=== PATIENT | female | born 1975 | race Caucasian/White ===

== ENCOUNTER 2020-01-11 15:28 | Inpatient (IN) ==
[2020-01-11] MEDS ORDERED: ALBUTEROL SULFATE 60 PUFF INHALER IH ONE (15:41)
[2020-01-11] MEDS ORDERED: ACETAMINOPHEN 500 MG TABLET PO ONE (15:42)
--- NOTE | 2020-01-11 15:51 | ERNOTE ---
Medical Problem HPI - Narrative Date of Service: 01/11/20 - General Chief Complaint: General Assessment Time Seen by Provider: 01/11/20 15:29 Source: patient Exam Limitations: no limitations - Immun/Allergies/Home Medications Immunizations: IMMUNIZATION HX Immunizations Up to Date Yes History of Influenza Vaccine No Allergies/Adverse Reactions: Allergies No Known Allergies Allergy (Unverified 01/11/20 15:37) Home Medications: HOME MEDICATIONS NK 01/11/20 [Last Taken Unknown] - Pain Score Pain Score #1 Pain Score: 6 - History of Present History Narrative: The patient is a 44 year old female who presents for dyspnea, fever and headache which has been present for 3-4 days. There are associated symptoms of fatigue and cough. The patient reports frontal and occipital pain, 6/10. There are no alleviating factors. There are no aggravating factors. Previous treatments have included: Tylenol with minimal improvement. The past medical history includes: noncontributory. The social history is positive for current tobacco use. The patient has had ill contacts at home with her spouse testing positive for COVID-19, 5 days ago. Patient states she developed headache and fever 4 days ago which progressed to cough and dyspnea. Patient reports remains eating and drinking with urine output but overall has been decreased due to fatigue. Review of Systems - Review of Systems Constitutional: Present: fever, chills, fatigue EYE: Present: no symptoms reported ENT: Present: no symptoms reported. Absent: ear pain, nose congestion, nasal drainage, sore throat Respiratory: Present: shortness of breath, cough Cardiology: Present: no symptoms reported. Absent: chest pain Gastrointestinal/Abdominal: Present: nausea, eating less, drinking less. Absent: vomiting, diarrhea Genitourinary: Present: no symptoms reported. Absent: decreased urinary output Musculoskeletal: Present: no symptoms reported Skin: Present: no symptoms reported. Absent: rash Neurological: Present: headache, weakness All Other Systems: All systems neg except as marked Medical History (Last Reviewed 01/11/20 @ 15:46 by EVER Byrd) No pertinent past medical history Surgical History: Surgical History (Last Reviewed 01/11/20 @ 15:46 by EVER Byrd) No pertinent past surgical history Social History: (Last Reviewed 01/11/20 @ 15:46 by Jacquelyn Antwon, EDUCATION LIAISON) Tobacco: Smoking Status: Current every day smoker Smoking packs per day: 0.5 Alcohol: alcohol intake frequency: holiday/special occasion Physical Exam - Physical Exam General Appearance: Present: wd/wn, alert, lethargic - awakens easily with verbal stimuli, sleeping/easy to arouse, other - malaised Head Exam: Present: normal inspection Eye Exam: Normal inspection: bilateral, PERRL: bilateral, EOMI: bilateral Ears, Nose, Throat: Present: normal except -, normal pharynx, dry mucous membranes. Absent: abnormal TM (R), abnormal TM (L), nasal congestion, sinus pain/drainage Neck: Present: normal inspection, nontender, full range of motion Respiratory: Present: no respiratory distress, accessory muscle use - mild, decreased breath sounds - left base greatest, rhonchi - right base and mid, expiratory Cardiovascular/Chest: Present: no murmur, tachycardia Gastrointestinal/Abdominal: Present: normal bowel sounds, nontender, nondistended, soft, no organomegaly Extremity Exam: Present: no edema Neurological Exam: Present: alert, oriented, normal mood/affect, no motor/sensory deficits Skin Exam: Present: normal color, warm/dry, other - presumed track liu noted to AC from possible drug use Progress - Date and Time Seen: Date and Time: 01/11/20 17:29 Will administer Zosyn due to elevated WBC 16.2 and Procalcitonin 42. Patient remains normotensive following IV fluid bolus with HR 112, will continue IV hydration at rate of 126ml/hr. Patient resting with minimal distress noted, mild accessory muscle use. Patient remains 97% on RA with resp rate 22. 01/11/20 17:36 Lab staff having difficulty to obtain specimen for ordered testing. 01/11/20 17:58 RT unable to obtain ABG due to patient movement, patient refuses second attempt. Awaiting portable CXR. 01/11/20 19:13 Repeat fluid bolus due to elevation to lactic acid. Added Vanco for MRSA coverage due to track liu and drug screen positive for amphetamines along with CXR findings. Patient for CTA due to symptoms and elevated ddimer. 01/11/20 20:00 Case discussed with , will admit acute for sepsis, possible COVID and multifocal pneumonia. Results of testing as well pending testing reviewed with , requests 3rd liter bolus as well as to continue IV fluids at 126m/hr. - Results and Orders Patient's Lab Results:: I have reviewed the patient's lab results. - Vital Signs Patient's Vital Signs:: I have reviewed the patient's vital signs. Vital Signs: Vital Signs 01/11/20 15:29 Temperature 37.9 C Pulse Rate 98 Respiratory Rate 25 H Blood Pressure 133/81 O2 Sat by Pulse Oximetry 97 - EKG EKG #1 EKG: NSR - tachycardia rate 112, nonspecific ST T wave changes - ST depression II, III, aVF - X-Ray X-Ray #1 X-Ray: chest Interpretation: Reviewed by me X-ray Comments: bilateral multifocal pneumonia, reviewed with . - CT/Ultrasound CT/Ultrasound Narrative: IMPRESSION: 1. No PE 2. Findings compatible with multifocal pneumonia and probable reactive hilar adenopathy and mediastinal adenopathy Electronically signed by Amol Oglesby M.D.. - Progress/Reassessment Chief Complaint: General Assessment Departure Clinical Impression: Multifocal pneumonia, Suspected COVID-19 virus infection Sepsis Qualifiers: Sepsis type: sepsis due to unspecified organism Sepsis acute organ dysfunction status: without acute organ dysfunction Qualified Code(s): A41.9 - Sepsis, unspecified organism - Departure Disposition: Still a patient Condition: Fair
[2020-01-11 16:06] LABS: Hematocrit 37.4 % (37.0-47.0); Hemoglobin 12.7 gm/dL (12.5-16.0); Mean Cell Volume 92.3 fl (78-100); Mean Corpuscular Hemoglobin 31.4 pg (27-31); Mean Platelet Volume 11.9 fl (8-12.5); Platelet Count 177 K/mm3 (150-450); Red Blood Count 4.05 M/mm3 (4.2-5.4); Red Cell Distribution Width 12.8 % (11.5-14.0); White Blood Count 16.2 K/mm3 (4.0-10.5)
[2020-01-11] MEDS: NORMAL SALINE 1,000 ML IV PRN ×2 (16:11→22:45)
[2020-01-11 16:15] LABS: Total Cells Counted 100
[2020-01-11 16:20] LABS: ALT 12 U/L (19-67); AST 14 U/L (0-48); Albumin * 2.6 gm/dl (3.4-5.0); Alkaline Phosphatase * 122 U/L (50-170); Anion Gap 13.3 mmol/L (6.8-13.8); BUN/Creatinine Ratio 4.9 (9.0-21.6); Bilirubin, Total 0.6 mg/dL (0.0-1.1); Blood Urea Nitrogen 5 mg/dL (3-23); Ca. Corrected For Albumin 9.5 mg/dL (8.4-10.2); Calcium * 8.7 mg/dL (7.9-10.9); Carbon Dioxide 27.1 mmol/L (24-32.6); Chloride 95 mmol/L (97-106); Glucose * 103 mg/dL (70-110); Potassium 3.4 mmol/L (3.4-4.6); Sodium 132 mmol/L (132-142); Total Protein 7.2 gm/dL (6.2-8.2); Troponin I Less than 0.017 ng/mL (0.00-0.10)
[2020-01-11 16:30] LABS: Band 21 % (0-2.0); Lymphocyte 6 % (20-51); Monocyte 3 % (0-9); Neutrophil 70 % (42-75); Neutrophil # 11.3 K/mm3 (1.3-6.0)
[2020-01-11 16:33] LABS: Anisocytosis Trace; Platelet Estimate Normal (NORMAL)
[2020-01-11] MEDS ORDERED: PIPERACILLIN SODIUM/TAZOBACTAM 3.375 GM in DEXTROSE 5 % IN WATER 100 ML IV ONE ×2 (17:03)
[2020-01-11] MEDS ORDERED: NORMAL SALINE 1,000 ML IV ONE ×2 (17:19→20:08)
[2020-01-11 18:17] LABS: Urine Bilirubin Negative (NEGATIVE); Urine Blood Negative /ul (NEGATIVE); Urine Ketone Negative (NEGATIVE); Urine Nitrite Negative (NEGATIVE); Urine Protein Negative (NEGATIVE); Urine Urobilinogen Normal (NORMAL); Urine pH 6.5 pH (5.0-7.0)
[2020-01-11] MEDS ORDERED: VANCOMYCIN/WATER FOR INJ (PEG) 1 GM/200 ML BAG IV ONE (18:41)
[2020-01-11] MEDS ORDERED: NORMAL SALINE 1,000 ML IV PRN (18:58)
[2020-01-11 18:59] LABS: Urine Appearance Cloudy (CLEAR); Urine Bacteria TRACE; Urine Color Yellow; Urine RBC TRACE /hpf (0-5); Urine WBC TRACE /hpf (0-5)
[2020-01-11 19:02] LABS: Cocaine Ur Negative (NEGATIVE); Urine Barbiturate Negative (NEGATIVE); Urine Benzodiazepines Negative (NEGATIVE); Urine Opiates Negative (NEGATIVE); Urine PCP Negative (NEGATIVE); Urine THC Negative (NEGATIVE)
[2020-01-11] MEDS ORDERED: ALBUTEROL SULFATE 200 PUFF INHALER IH PRN (20:29)
[2020-01-11] MEDS ORDERED: AZITHROMYCIN 500 MG in DEXTROSE 5 % IN WATER 250 ML IV ONE ×2 (21:00)
[2020-01-11] MEDS: SACCHAROMYCES BOULARDII 250 MG CAPSULE PO SCH (22:43)
[2020-01-11] MEDS: ENOXAPARIN SODIUM 40 MG/0.4 ML SYRG SC SCH (22:43)
[2020-01-11] MEDS: PANTOPRAZOLE SODIUM 40 MG TABLET.EC PO SCH (22:43)
[2020-01-11] MEDS: NICOTINE 14 MG PATC TD SCH (22:44)
[2020-01-12] MEDS: PIPERACILLIN SODIUM/TAZOBACTAM 3.375 GM in DEXTROSE 5 % IN WATER 100 ML IV SCH ×6 (01:15→16:21)
[2020-01-12] MEDS: ACETAMINOPHEN 325 MG TABLET PO PRN ×3 (02:49→20:31)
[2020-01-12] MEDS: NORMAL SALINE 1,000 ML IV PRN ×2 (08:01→16:15)
[2020-01-12] MEDS: PANTOPRAZOLE SODIUM 40 MG TABLET.EC PO SCH ×2 (08:03→20:32)
[2020-01-12] MEDS: VANCOMYCIN/WATER FOR INJ (PEG) 1 GM/200 ML BAG IV SCH ×2 (08:03→20:30)
[2020-01-12] MEDS: SACCHAROMYCES BOULARDII 250 MG CAPSULE PO SCH ×2 (08:08→20:31)
[2020-01-12] MEDS ORDERED: guaiFENesin 100 MG/5 ML SYRUP PO PRN (08:19)
--- NOTE | 2020-01-12 08:40 | HP ---
Chief Complaint - Chief Complaint Date of Service: 01/12/20 Time of Service: 08:21 Chief Complaint: I have cough, fever, chills, and shortness of breath for 4 days History of Present Illness: 44-year-old female with no significant past medical history was evaluated in the ER for shortness of breath, fever, chills and cough for more than 4 days. Patient currently lives with her who tested positive for COVID-19 5 days ago and has been ill with the same symptoms that she presents today. She reports that her symptoms started with a cough but by the second day she was having trouble breathing and developed a fever with chills. Since then she has had poor appetite and poor oral intake and is likely dehydrated. Patient was brought to the ER when she became lethargic and developed generalized weakness. Labs on admission demonstrate significant leukocytosis with left shift and elevated lactic acid. She was immediately started on IV fluids for aggressive hydration and IV antibiotics. Patient was also swabbed for COVID-19 especially given her exposure from her . While we wait for result we will keep her in a negative pressure room and take all necessary precaution to prevent propagation of the virus. Of note the patient was observed to have track liu in her inner forearms and although she denies injecting drugs she tested positive for amphetamines, will have to watch her closely for withdrawal. She was also administered has given her long history of smoking half a pack of cigarettes a day. Patient denies drinking alcohol. Medical History (Last Reviewed 01/11/20 @ 15:46 by EVER Byrd) No pertinent past medical history Surgical History: Surgical History (Last Reviewed 01/11/20 @ 15:46 by EVER Byrd) No pertinent past surgical history Social History: (Last Reviewed 01/11/20 @ 15:46 by EVER Byrd) Tobacco: Smoking Status: Current every day smoker Smoking packs per day: 0.5 Alcohol: alcohol intake frequency: holiday/special occasion Peds Patient Hx - Developmental: No Pertinent Hx Peds Patient Hx - Medical: No Pertinent Hx Peds Patient Hx - Cardiac/Respiratory: No Pertinent Hx Peds Patient Hx - Surgical: No Surgical History Patient History - Cancer: No Hx of Cancer Review Of Systems (GEN) - Review of Systems Generalized/Overall Review: Present: Weakness, Chills, Fever, Malaise, Fatigue EENTM: Present: No Symptoms Reported Respiratory: Present: Cough, Shortness of Breath Cardiac: Present: No Symptoms Reported Abdominal: Present: Other - Poor appetite and poor oral intake Genitourinary: Present: No Symptoms Reported Musculoskeletal: Present: No Symptoms Reported Neurological: Present: No Symptoms Reported Skin: Present: No Symptoms Reported Endocrine: Present: No Symptoms Reported Immunizations: IMMUNIZATION HX Immunizations Up to Date Yes History of Influenza Vaccine No Allergies/Adverse Reactions: Allergies Allergy/AdvReac Type Severity Reaction Status Date / Time No Known Allergies Allergy Unverified 01/11/20 21:07 Home Medications: HOME MEDICATIONS NK 01/11/20 [Last Taken Unknown] Exam - Exam Vital Signs: Vital Signs - Last Taken Temp 36.9 C 01/12/20 06:00 Pulse 106 H 01/12/20 08:14 Resp 18 01/12/20 06:00 BP 107/73 01/12/20 08:14 Pulse Ox 97 01/12/20 08:14 Constitutional: Present: Alert, Oriented x3, Cooperative, No distress, Lethargic, Somnolent ENT Exam: Present: normal ENT inspection, hearing grossly normal, pharynx normal, TMs normal Eye Exam: bilateral eye: normal inspection, PERRL, EOMI Neck: Present: non-tender, full range of motion, supple, normal inspection, trachea midline Back Exam: Present: normal inspection, no CVA tenderness, no vertebral tenderness Breasts: Present: Exam deferred, Nontender Respiratory: Present: decreased breath sounds Cardiovascular/Chest: Present: normal peripheral pulses, regular rate, rhythm, no chest tenderness, no edema, no gallop, no JVD, no murmur, no rub Peripheral Pulses: carotid (R): 3+, carotid (L): 3+, femoral (R): 3+, femoral (L): 3+, dorsalis-pedis (R): 2+, dorsalis-pedis (L): 2+ Abdomen: Present: soft, nontender, nondistended, no rebound tenderness, no hepatospenomegaly, no masses, hypoactive /Rectal: Present: Exam deferred Extremity: Present: normal range of motion, non-tender, normal inspection, no pedal edema, no calf tenderness, normal capillary refill, pelvis stable Skin Exam: Present: normal color, warm/dry, no cyanosis Lymphatic: Present: no adenopathy Neurologic: Present: alert, oriented x 3, depressed affect Appearance: Present: appropriate appearance, appropriate insight, neat, no memory impairment Eye contact: Present: cooperative, good eye contact, decreased rate of speech Thoughts: Present: normal thought pattern, no apparent hallucination Diagnostic Studies: Abnormal Lab Results 01/11/20 01/11/20 01/11/20 Range/Units 16:01 16:01 16:01 WBC 16.2 H (4.0-10.5) K/mm3 RBC 4.05 L (4.2-5.4) M/mm3 MCH 31.4 H (27-31) pg Band Neuts % (Manual) 21 H (0-2.0) % Lymphocytes % (Manual) 6 L (20-51) % Neutrophils # (Manual) 11.3 H (1.3-6.0) K/mm3 Lymphocytes # (Manual) 1.0 L (1.5-3.5) k/mm3 D-Dimer (0.19-0.49) ug/mL Chloride 95 L (97-106) mmol/L BUN/Creatinine Ratio 4.9 L (9.0-21.6) Lactic Acid, Venous (0.4-2.0) mmol/L ALT 12 L (19-67) U/L Albumin 2.6 L (3.4-5.0) gm/dl Procalcitonin 42.96 H (0.05-0.50) ng/mL Urine WBC (0-5) /hpf Urine Amphetamine (NEGATIVE) 01/11/20 01/11/20 01/11/20 Range/Units 16:01 17:33 18:25 WBC (4.0-10.5) K/mm3 RBC (4.2-5.4) M/mm3 MCH (27-31) pg Band Neuts % (Manual) (0-2.0) % Lymphocytes % (Manual) (20-51) % Neutrophils # (Manual) (1.3-6.0) K/mm3 Lymphocytes # (Manual) (1.5-3.5) k/mm3 D-Dimer (0.19-0.49) ug/mL Chloride (97-106) mmol/L BUN/Creatinine Ratio (9.0-21.6) Lactic Acid, Venous 2.6 H* (0.4-2.0) mmol/L ALT (19-67) U/L Albumin (3.4-5.0) gm/dl Procalcitonin (0.05-0.50) ng/mL Urine WBC Trace H (0-5) /hpf Urine Amphetamine Positive H (NEGATIVE) 01/11/20 01/11/20 Range/Units 18:30 18:30 WBC (4.0-10.5) K/mm3 RBC (4.2-5.4) M/mm3 MCH (27-31) pg Band Neuts % (Manual) (0-2.0) % Lymphocytes % (Manual) (20-51) % Neutrophils # (Manual) (1.3-6.0) K/mm3 Lymphocytes # (Manual) (1.5-3.5) k/mm3 D-Dimer 1.26 H (0.19-0.49) ug/mL Chloride (97-106) mmol/L BUN/Creatinine Ratio (9.0-21.6) Lactic Acid, Venous 3.6 H* (0.4-2.0) mmol/L ALT (19-67) U/L Albumin (3.4-5.0) gm/dl Procalcitonin (0.05-0.50) ng/mL Urine WBC (0-5) /hpf Urine Amphetamine (NEGATIVE) Laboratory Results WBC 16.2 K/mm3 (4.0-10.5) H 01/11/20 16:01 RBC 4.05 M/mm3 (4.2-5.4) L 01/11/20 16:01 Hgb 12.7 gm/dL (12.5-16.0) 01/11/20 16:01 Hct 37.4 % (37.0-47.0) 01/11/20 16:01 MCV 92.3 fl (78-100) 01/11/20 16:01 MCH 31.4 pg (27-31) H 01/11/20 16:01 MCHC 34.0 g/dl (32-36) 01/11/20 16:01 RDW 12.8 % (11.5-14.0) 01/11/20 16: Plt Count 177 K/mm3 (150-450) 01/11/20 16:01 MPV 11.9 fl (8-12.5) 01/11/20 16:01 Neutrophils % (Manual) 70 % (42-75) 01/11/20 16:01 Band Neuts % (Manual) 21 % (0-2.0) H 01/11/20 16:01 Lymphocytes % (Manual) 6 % (20-51) L 01/11/20 16:01 Monocytes % (Manual) 3 % (0-9) 01/11/20 16:01 Neutrophils # (Manual) 11.3 K/mm3 (1.3-6.0) H 01/11/20 16:01 Lymphocytes # (Manual) 1.0 k/mm3 (1.5-3.5) L 01/11/20 16:01 Monocytes # (Manual) 0.5 k/mm3 (0.0-1.0) 01/11/20 16:01 Platelet Estimate Normal (NORMAL) 01/11/20 16: Anisocytosis Trace 01/11/20 16:01 D-Dimer 1.26 ug/mL (0.19-0.49) H 01/11/20 18:30 Sodium 132 mmol/L (132-142) 01/11/20 16:01 Plasma Sodium 132 mmol/L (130-142) 01/11/20 16:01 Potassium 3.4 mmol/L (3.4-4.6) 01/11/20 16:01 Chloride 95 mmol/L (97-106) L 01/11/20 16:01 Carbon Dioxide 27.1 mmol/L (24-32.6) 01/11/20 16:01 Anion Gap 13.3 mmol/L (6.8-13.8) 01/11/20 16:01 BUN 5 mg/dL (3-23) 01/11/20 16:01 Creatinine 1.02 mg/dL (0.4-1.4) 01/11/20 16:01 Est GFR (Non-Af Amer) 63 mL/min (60-130) 01/11/20 16:01 BUN/Creatinine Ratio 4.9 (9.0-21.6) L 01/11/20 16:01 Random Glucose 103 mg/dL (70-110) 01/11/20 16:01 Lactic Acid, Venous 3.6 mmol/L (0.4-2.0) H* 01/11/20 18:30 Calcium 8.7 mg/dL (7.9-10.9) 01/11/20 16: Calcium Adj for Albumin 9.5 mg/dL (8.4-10.2) 01/11/20 16: Total Bilirubin 0.6 mg/dL (0.0-1.1) 01/11/20 16:01 AST 14 U/L (0-48) 01/11/20 16:01 ALT 12 U/L (19-67) L 01/11/20 16:01 Alkaline Phosphatase 122 U/L (50-170) 01/11/20 16: Troponin I Less than 0.017 ng/mL (0.00-0.10) 01/11/20 16: Total Protein 7.2 gm/dL (6.2-8.2) 01/11/20 16: Albumin 2.6 gm/dl (3.4-5.0) L 01/11/20 16: Procalcitonin 42.96 ng/mL (0.05-0.50) H 01/11/20 16:01 Urine Color Yellow 01/11/20 18:25 Urine Appearance Cloudy (CLEAR) 01/11/20 18:25 Urine pH 6.5 pH (5.0-7.0) 01/11/20 18:25 Ur Specific [place] 1.010 SP.GR. (1.005-1.010) 01/11/20 18:25 Urine Protein Negative mg/dL (NEGATIVE) 01/11/20 18:25 Urine Glucose (UA) Negative mg/dL (NEGATIVE) 01/11/20 18:25 Urine Ketones Negative mg/dL (NEGATIVE) 01/11/20 18:25 Urine Blood Negative /ul (NEGATIVE) 01/11/20 18:25 Urine Nitrate Negative (NEGATIVE) 01/11/20 18:25 Urine Bilirubin Negative mg/dl (NEGATIVE) 01/11/20 18:25 Urine Urobilinogen Normal EU/dl (NORMAL) 01/11/20 18:25 Ur Leukocyte Esterase Negative /ul (NEGATIVE) 01/11/20 18:25 Urine RBC Trace /hpf (0-5) 01/11/20 18:25 Urine WBC Trace /hpf (0-5) H 01/11/20 18:25 Ur Epithelial Cells 0-5 /hpf (0-5) 01/11/20 18:25 Urine Bacteria Trace (NONE) 01/11/20 18:25 Urine Culture Comments No culture indicated 01/11/20 18:25 Urine Opiates Screen Negative (NEGATIVE) 01/11/20 17:33 Barbiturate Screen Negative (NEGATIVE) 01/11/20 17:33 Ur Phencyclidine Scrn Negative (NEGATIVE) 01/11/20 17:33 Urine Amphetamine Positive (NEGATIVE) H 01/11/20 17:33 U Benzodiazepines Scrn Negative (NEGATIVE) 01/11/20 17:33 Urine Cocaine Screen Negative (NEGATIVE) 01/11/20 17:33 Urine Marijuana (THC) Negative (NEGATIVE) 01/11/20 17:33 Assessment/Plan - Narrative Narrative: Patient was evaluated medical chart was reviewed and decision to admit for a diagnosis of multifocal pneumonia and suspected COVID-19 infection was made. She underwent a chest x-ray which demonstrated bilateral infiltrate making a multifocal pneumonia very likely. The patient had an elevated d-dimer upon arriving to the ER and underwent a CTA of her lungs which was negative for PE, however the imaging did confirm bilateral multifocal pneumonia. Therefore we will continue to hydrate her aggressively and treat her with appropriate IV antibiotics. We will also follow her with daily labs in order to evaluate her leukocytosis and response to therapies. We will also follow-up with COVID-19 results but keep the patient and the negative pressure room until the results return. - Assessment/Plan (1) Multifocal pneumonia Problem: Acute (2) Suspected COVID-19 virus infection Problem: Acute (3) Sepsis Problem: Acute (4) Nicotine dependence Problem: Chronic Qualifiers: Nicotine product type: cigarettes (5) Amphetamine addiction Problem: Acute (6) Dehydration Problem: Acute
[2020-01-12] MEDS: NICOTINE 14 MG PATC TD SCH ×2 (13:55→21:06)
[2020-01-12] MEDS ORDERED: VANCOMYCIN/WATER FOR INJ (PEG) 1 GM/200 ML BAG IV SCH (18:40)
[2020-01-12] MEDS: AZITHROMYCIN 250 MG TABLET PO SCH (20:31)
[2020-01-12] MEDS: ENOXAPARIN SODIUM 40 MG/0.4 ML SYRG SC SCH (20:32)
[2020-01-12] MEDS ORDERED: AZITHROMYCIN 250 MG in DEXTROSE 5 % IN WATER 250 ML IV SCH ×2 (21:00)
[2020-01-12 21:59] LABS: Hematocrit 27.5 % (37.0-47.0); Hemoglobin 9.4 gm/dL (12.5-16.0); Mean Cell Volume 92.9 fl (78-100); Mean Corpuscular Hemoglobin 31.8 pg (27-31); Mean Corpuscular Hgb Conc 34.2 g/dl (32-36); Mean Platelet Volume 11.7 fl (8-12.5); Platelet Count 146 K/mm3 (150-450); Red Blood Count 2.96 M/mm3 (4.2-5.4); Red Cell Distribution Width 13.2 % (11.5-14.0); White Blood Count 10.8 K/mm3 (4.0-10.5)
[2020-01-12 22:07] LABS: Total Cells Counted 100
[2020-01-12 22:09] LABS: Albumin * 1.7 gm/dl (3.4-5.0); Anion Gap 12.7 mmol/L (6.8-13.8); BUN/Creatinine Ratio 7.4 (9.0-21.6); Bilirubin, Total 0.5 mg/dL (0.0-1.1); Calcium * 7.5 mg/dL (7.9-10.9); Carbon Dioxide 21.8 mmol/L (24-32.6); Total Protein 5.6 gm/dL (6.2-8.2)
[2020-01-12 22:15] LABS: Potassium 2.5 mmol/L (3.4-4.6)
[2020-01-12 22:21] LABS: Lymphocyte 11 % (20-51); Monocyte 6 % (0-9); Neutrophil 83 % (42-75); Platelet Estimate Normal (NORMAL); RBC Morphology Normal (NORMAL)
[2020-01-12] MEDS ORDERED: POTASSIUM CHLORIDE 20 MEQ TABLET.SA PO ONE (22:55)
[2020-01-13] MEDS ORDERED: POTASSIUM CHLORIDE 20 MEQ TABLET.SA ONE (00:22)
[2020-01-13] MEDS: NORMAL SALINE 1,000 ML IV PRN ×3 (00:33→17:38)
[2020-01-13] MEDS: PIPERACILLIN SODIUM/TAZOBACTAM 3.375 GM in DEXTROSE 5 % IN WATER 100 ML IV SCH ×6 (00:34→16:15)
[2020-01-13] MEDS: ACETAMINOPHEN 325 MG TABLET PO PRN ×3 (00:36→20:17)
[2020-01-13] MEDS: PANTOPRAZOLE SODIUM 40 MG TABLET.EC PO SCH ×2 (07:01→20:17)
[2020-01-13] MEDS: VANCOMYCIN/WATER FOR INJ (PEG) 1 GM/200 ML BAG IV SCH ×2 (07:02→20:16)
--- NOTE | 2020-01-13 08:46 | PN ---
Subjective - Date and Time Seen Date: 01/13/20 Time: 08:38 Subjective Narrative: I had high fever last night and I still have cough. Objective Objective Narrative: 44-year-old female admitted for sepsis due to COVID-19 pneumonia and dehydration was evaluated at bedside while still in the negative pressure room and was found to be afebrile and in no acute distress, however the patient still appears acutely ill with skin flushing and weakness. Test results for COVID-19 returned positive last night, so we will continue current treatment and keep her in a negative pressure room. Patient reports that her breathing has improved since arriving to the hospital however she still feels weak and still has a cough that keeps her up, she also reports a high-grade fever last night that caused her to have a difficult time. Patient was treated with acetaminophen and the fever subsided. Since then she has had no recurrence of fever but we will continue to monitor her closely. At the moment she maintains adequate oxygen saturation on room air and stable vitals and labs this morning demonstrate a favorable response to triple antibiotics including azithromycin to cover for her COVID 19, however she had significant hypokalemia. IV potassium replacement and follow-up labs for tomorrow morning were ordered. In the meantime we will keep the patient hydrated with IV normal saline and other symptomatic medications to make as comfortable as possible. - Review of Systems Generalized/Overall Review: Reports: Weakness, Fever EENTM: Reports: No Symptoms Reported Respiratory: Reports: Cough Cardiac: Reports: No Symptoms Reported Abdominal: Reports: No Symptoms Reported Genitourinary Symptoms: Reports: No Symptoms Reported Musculoskeletal Complaints: Reports: No Symptoms Reported Neurological: Reports: No Symptoms Reported Skin: Reports: No Symptoms Reported Endocrine: Reports: No Symptoms Reported - Vitals Vitals: Last Vital Signs Temp 37.3 C 01/13/20 07:08 Pulse 101 H 01/13/20 07:08 Resp 20 01/13/20 07:08 BP 113/58 01/13/20 07:08 Pulse Ox 100 01/13/20 07:08 - Abnormal Lab Findings Abnormal Lab Findings: Abnormal Lab Results 01/12/20 01/12/20 01/12/20 Range/Units 21:46 21:46 21:46 WBC 10.8 H D (4.0-10.5) K/mm3 RBC 2.96 L (4.2-5.4) M/mm3 Hgb 9.4 L (12.5-16.0) gm/dL Hct 27.5 L (37.0-47.0) % MCH 31.8 H (27-31) pg Plt Count 146 L (150-450) K/mm3 Neutrophils % (Manual) 83 H (42-75) % Lymphocytes % (Manual) 11 L (20-51) % Neutrophils # (Manual) 9.0 H (1.3-6.0) K/mm3 Lymphocytes # (Manual) 1.2 L (1.5-3.5) k/mm3 VBG pH (7.32-7.43) Potassium 2.5 L D (3.4-4.6) mmol/L Carbon Dioxide 21.8 L (24-32.6) mmol/L BUN/Creatinine Ratio 7.4 L (9.0-21.6) Random Glucose 123 H (70-110) mg/dL Calcium 7.5 L (7.9-10.9) mg/dL ALT 12 L (19-67) U/L Total Protein 5.6 L (6.2-8.2) gm/dL Albumin 1.7 L (3.4-5.0) gm/dl Procalcitonin 19.57 H (0.05-0.50) ng/mL 01/12/20 Range/Units 21:46 WBC (4.0-10.5) K/mm3 RBC (4.2-5.4) M/mm3 Hgb (12.5-16.0) gm/dL Hct (37.0-47.0) % MCH (27-31) pg Plt Count (150-450) K/mm3 Neutrophils % (Manual) (42-75) % Lymphocytes % (Manual) (20-51) % Neutrophils # (Manual) (1.3-6.0) K/mm3 Lymphocytes # (Manual) (1.5-3.5) k/mm3 VBG pH 7.495 H (7.32-7.43) Potassium (3.4-4.6) mmol/L Carbon Dioxide (24-32.6) mmol/L BUN/Creatinine Ratio (9.0-21.6) Random Glucose (70-110) mg/dL Calcium (7.9-10.9) mg/dL ALT (19-67) U/L Total Protein (6.2-8.2) gm/dL Albumin (3.4-5.0) gm/dl Procalcitonin (0.05-0.50) ng/mL - Exam Constitutional: Present: Alert, Oriented x3, Cooperative, Well developed, Well nourished, No distress, Other - Patient appears acutely ill but is not in distress ENT Exam: Present: normal ENT inspection, hearing grossly normal Neck: Present: non-tender, full range of motion, supple, normal inspection, trachea midline Breasts: Present: Exam deferred Respiratory: Present: crackles - Scattered crackles bilaterally Cardiovascular/Chest: Present: normal peripheral pulses, regular rate, rhythm, no chest tenderness, no edema, no gallop, no JVD, no murmur, no rub Abdomen: Present: Normal bowel sounds, soft, nontender, nondistended, no rebound tenderness, no hepatospenomegaly, no masses /Rectal: Present: Exam deferred Extremity: Present: normal range of motion, non-tender, normal inspection, no pedal edema, no calf tenderness, normal capillary refill, pelvis stable Skin Exam: Present: warm/dry, no cyanosis, other - Patient skin is flushed worse in her face and upper thorax Lymphatic: Present: no adenopathy Neurologic: Present: transportation attendant II-XII nml as tested, no motor/sensory deficits, alert, oriented x 3, depressed affect Appearance: Present: appropriate appearance, appropriate insight, neat, no memory impairment Eye contact: Present: cooperative, good eye contact, normal speech Thoughts: Present: normal thought pattern, no apparent hallucination Assessment/Plan Plan Narrative: We will keep patient on IV hydration and on the current antibiotic therapies, will also follow-up with labs in the morning to recheck electrolyte specifically hypokalemia and WBCs. - Problems/Diagnosis (1) Multifocal pneumonia Problem: Acute (2) Suspected COVID-19 virus infection Problem: Acute (3) Sepsis Problem: Acute (4) Nicotine dependence Problem: Chronic Qualifiers: Nicotine product type: cigarettes (5) Amphetamine addiction Problem: Acute (6) Dehydration Problem: Resolved (7) COVID-19 virus infection Problem: Acute
[2020-01-13] MEDS: SACCHAROMYCES BOULARDII 250 MG CAPSULE PO SCH ×2 (08:47→20:17)
[2020-01-13] MEDS: POTASSIUM CHLORIDE IN WATER 100 ML IV SCH ×4 (08:48→11:47)
[2020-01-13] MEDS: AZITHROMYCIN 250 MG TABLET PO SCH (20:17)
[2020-01-13] MEDS: ENOXAPARIN SODIUM 40 MG/0.4 ML SYRG SC SCH (20:18)
[2020-01-13] MEDS: NICOTINE 14 MG PATC TD SCH (20:18)
[2020-01-14] MEDS: PIPERACILLIN SODIUM/TAZOBACTAM 3.375 GM in DEXTROSE 5 % IN WATER 100 ML IV SCH ×6 (01:44→17:31)
[2020-01-14] MEDS: NORMAL SALINE 1,000 ML IV PRN (01:59)
[2020-01-14] MEDS: ACETAMINOPHEN 325 MG TABLET PO PRN ×2 (05:36→17:37)
[2020-01-14] MEDS ORDERED: VANCOMYCIN HCL LEVEL XX ONE (06:30)
[2020-01-14] MEDS: VANCOMYCIN/WATER FOR INJ (PEG) 1 GM/200 ML BAG IV SCH (07:38)
[2020-01-14] MEDS: PANTOPRAZOLE SODIUM 40 MG TABLET.EC PO SCH ×2 (07:39→20:14)
[2020-01-14 09:10] LABS: Hematocrit 27.5 % (37.0-47.0); Hemoglobin 9.3 gm/dL (12.5-16.0); Mean Cell Volume 92.3 fl (78-100); Mean Corpuscular Hemoglobin 31.2 pg (27-31); Mean Corpuscular Hgb Conc 33.8 g/dl (32-36); Mean Platelet Volume 11.4 fl (8-12.5); Neutrophil # 7.1 K/mm3 (1.3-6.0); Neutrophil % 77.3 % (42-75.0); Platelet Count 188 K/mm3 (150-450); Red Blood Count 2.98 M/mm3 (4.2-5.4); Red Cell Distribution Width 13.4 % (11.5-14.0); White Blood Count 9.2 K/mm3 (4.0-10.5)
[2020-01-14 09:25] LABS: Albumin * 1.6 gm/dl (3.4-5.0); Anion Gap 12.7 mmol/L (6.8-13.8); BUN/Creatinine Ratio 5.6 (9.0-21.6); Bilirubin, Total 0.3 mg/dL (0.0-1.1); Ca. Corrected For Albumin 9.3 mg/dL (8.4-10.2); Calcium * 7.7 mg/dL (7.9-10.9); Carbon Dioxide 22.2 mmol/L (24-32.6); Potassium 2.9 mmol/L (3.4-4.6); Total Protein 5.8 gm/dL (6.2-8.2); Vancomycin Trough 4.9 mcg/mL (10.0-20.0)
[2020-01-14] MEDS: SACCHAROMYCES BOULARDII 250 MG CAPSULE PO SCH ×2 (09:42→20:14)
--- NOTE | 2020-01-14 11:39 | PN ---
Subjective - Date and Time Seen Date: 01/14/20 Time: 11:28 Subjective Narrative: I feel hot like I have a fever. Objective Objective Narrative: 44-year-old female admitted for sepsis secondary to COVID-19 bronchopneumonia and dehydration was evaluated at bedside was found to be afebrile and in no acute distress. Patient is showing clinical improvement however she continues to have periodic fever spikes that are more frequent at night, we are treating this with acetaminophen which brings down the temperature when administered. At the moment she denies any pain or discomfort and says she is regaining some strength. Her only other complaint is persistent dry cough for which she is being treated with antitussives. Appetite is still poor but after explaining to patient the importance of fluid intake during yesterday's rounds, she is making an effort to increase juices and water. This morning she ate a banana for breakfast without any issues. Therefore we will hold IV fluids for now and reevaluate tomorrow morning. Labs this morning demonstrate complete resolution of leukocytosis and bandemia, however her hypokalemia persists despite IV replacement yesterday. Will order additional IV potassium re placement to be administered today and reevaluate with labs tomorrow morning. Patient saturating adequately on room air and reports improvement of her shortness of breath. We will continue to monitor her for fevers. - Review of Systems Generalized/Overall Review: Reports: Fever EENTM: Reports: No Symptoms Reported Respiratory: Reports: Cough Cardiac: Reports: No Symptoms Reported Abdominal: Reports: No Symptoms Reported Genitourinary Symptoms: Reports: No Symptoms Reported Musculoskeletal Complaints: Reports: No Symptoms Reported Neurological: Reports: No Symptoms Reported Skin: Reports: Change in Color - Skin flushing on face knees and hands Endocrine: Reports: Intolerance to Heat, Flushing - Vitals Vitals: Last Vital Signs Temp 37.4 C 01/14/20 09:47 Pulse 93 01/14/20 09:47 Resp 28 H 01/14/20 09:47 BP 124/78 01/14/20 09:47 Pulse Ox 97 01/14/20 09:47 - Abnormal Lab Findings Abnormal Lab Findings: Abnormal Lab Results 01/14/20 01/14/20 Range/Units 09:07 09:07 RBC 2.98 L (4.2-5.4) M/mm3 Hgb 9.3 L (12.5-16.0) gm/dL Hct 27.5 L (37.0-47.0) % MCH 31.2 H (27-31) pg Immature Gran % (Auto) 1.70 H (0.001-0.429) % Immature Gran # (Auto) 0.16 H (0.000-0.0310) K/mm3 Neutrophils % 77.3 H (42-75.0) % Lymphocytes % 11.6 L (20-51) % Neutrophils # 7.1 H (1.3-6.0) K/mm3 Lymphocytes # 1.07 L (1.5-3.5) k/mm3 Potassium 2.9 L (3.4-4.6) mmol/L Carbon Dioxide 22.2 L (24-32.6) mmol/L BUN/Creatinine Ratio 5.6 L (9.0-21.6) Calcium 7.7 L (7.9-10.9) mg/dL Alkaline Phosphatase 175 H (50-170) U/L Total Protein 5.8 L (6.2-8.2) gm/dL Albumin 1.6 L (3.4-5.0) gm/dl Vancomycin Trough 4.9 L (10.0-20.0) mcg/mL - Exam Constitutional: Present: Alert, Oriented x3, Cooperative, Well developed, Well nourished, No distress ENT Exam: Present: normal ENT inspection, hearing grossly normal, pharynx normal, TMs normal Neck: Present: non-tender, full range of motion, supple, normal inspection, trachea midline Breasts: Present: Exam deferred Respiratory: Present: decreased breath sounds, crackles - Fine crackles in upper lung segment Cardiovascular/Chest: Present: normal peripheral pulses, regular rate, rhythm, no chest tenderness, no edema, no gallop, no JVD, no murmur, no rub Abdomen: Present: Normal bowel sounds, soft, nontender, no rebound tenderness, no hepatospenomegaly, no masses /Rectal: Present: Exam deferred Extremity: Present: normal range of motion, non-tender, normal inspection, no pedal edema, no calf tenderness, normal capillary refill, pelvis stable Skin Exam: Present: warm/dry, no cyanosis, other - Skin flushing on face upper extremities and knees Lymphatic: Present: no adenopathy Neurologic: Present: all source analyst II-XII nml as tested, no motor/sensory deficits, alert, normal mood/affect, oriented x 3, disoriented x 3 Appearance: Present: appropriate appearance, appropriate insight, neat, no memory impairment Eye contact: Present: cooperative, normal speech, avoids eye contact Thoughts: Present: normal thought pattern, no apparent hallucination Assessment/Plan Plan Narrative: Follow-up labs have been ordered for tomorrow morning to reevaluate electrolytes. IV fluids were stopped and we will continue to encourage patient to increase oral intake to avoid dehydration. We are watching the patient closely for recurrent fever. - Problems/Diagnosis (1) Multifocal pneumonia Problem: Acute (2) Suspected COVID-19 virus infection Problem: Acute (3) Sepsis Problem: Resolved (4) Nicotine dependence Problem: Chronic Qualifiers: Nicotine product type: cigarettes (5) Amphetamine addiction Problem: Chronic (6) Dehydration Problem: Resolved (7) COVID-19 virus infection Problem: Acute (8) Pneumonia due to COVID-19 virus Problem: Acute
[2020-01-14] MEDS: POTASSIUM CHLORIDE IN WATER 100 ML IV SCH ×4 (12:04→15:09)
[2020-01-14] MEDS: ENOXAPARIN SODIUM 40 MG/0.4 ML SYRG SC SCH (20:14)
[2020-01-14] MEDS: AZITHROMYCIN 250 MG TABLET PO SCH (20:14)
[2020-01-14] MEDS: NICOTINE 14 MG PATC TD SCH (20:15)
[2020-01-15] MEDS: PIPERACILLIN SODIUM/TAZOBACTAM 3.375 GM in DEXTROSE 5 % IN WATER 100 ML IV SCH ×6 (00:50→16:46)
[2020-01-15] MEDS: ACETAMINOPHEN 325 MG TABLET PO PRN ×4 (00:55→20:38)
[2020-01-15] MEDS: PANTOPRAZOLE SODIUM 40 MG TABLET.EC PO SCH ×2 (06:59→20:33)
[2020-01-15 08:32] LABS: Hematocrit 28.4 % (37.0-47.0); Hemoglobin 9.6 gm/dL (12.5-16.0); Mean Cell Volume 91.9 fl (78-100); Mean Corpuscular Hemoglobin 31.1 pg (27-31); Mean Corpuscular Hgb Conc 33.8 g/dl (32-36); Neutrophil # 6.3 K/mm3 (1.3-6.0); Neutrophil % 75.6 % (42-75.0); Platelet Count 236 K/mm3 (150-450); Red Blood Count 3.09 M/mm3 (4.2-5.4); Red Cell Distribution Width 13.2 % (11.5-14.0); White Blood Count 8.3 K/mm3 (4.0-10.5)
[2020-01-15 09:01] LABS: Albumin * 1.6 gm/dl (3.4-5.0); Anion Gap 12.1 mmol/L (6.8-13.8); Bilirubin, Total 0.3 mg/dL (0.0-1.1); Ca. Corrected For Albumin 9.8 mg/dL (8.4-10.2); Calcium * 8.2 mg/dL (7.9-10.9); Carbon Dioxide 24.7 mmol/L (24-32.6); Potassium 2.8 mmol/L (3.4-4.6); Total Protein 5.9 gm/dL (6.2-8.2)
[2020-01-15] MEDS: SACCHAROMYCES BOULARDII 250 MG CAPSULE PO SCH ×2 (09:08→20:32)
[2020-01-15] MEDS: POTASSIUM CHLORIDE 20 MEQ TABLET.SA PO SCH (11:26)
--- NOTE | 2020-01-15 11:29 | PN ---
Subjective - Date and Time Seen Date: 01/15/20 Time: 11:16 Subjective Narrative: I feel much better, just have a cough. Objective Objective Narrative: 44-year-old female admitted for COVID-19 bronchopneumonia was eval uated at bedside was found to be afebrile and in no acute distress. Patient is doing much better clinically, this morning she was fully awake and was no longer flushed in the face, thorax, and knees like yesterday. Patient is oriented x3 and very pleasant and smiling. She says she feels stronger than before and for the first time she does not feel ill. She ate a significant breakfast and order ed room service for lunch so her appetite appears to be restored which will be beneficial to her progress. The only issue right now is recurrent fever spikes that appear to be more frequent at nighttime, for this we will continue to give her Tylenol. Patient still has a residual dry cough but auscultation of the patient's lung reveals significant improvement, she no longer has significant crackles like yesterday. Now only fine crackles can be heard at the left lung base. She expresses a desire to go home and it was explained to her that that was the plan but we are waiting for her fevers to subside. Potassium is on a upward trend below normal range, so additional oral potassium replacements were ordered. The rest of the labs show significant improvement. We will order CMP for evaluation in the morning. - Review of Systems Generalized/Overall Review: Reports: Fever EENTM: Reports: No Symptoms Reported Respiratory: Reports: Cough Cardiac: Reports: No Symptoms Reported Abdominal: Reports: No Symptoms Reported Genitourinary Symptoms: Reports: No Symptoms Reported Musculoskeletal Complaints: Reports: No Symptoms Reported Neurological: Reports: No Symptoms Reported Skin: Reports: No Symptoms Reported Endocrine: Reports: No Symptoms Reported - Vitals Vitals: Last Vital Signs Temp 36.7 C 01/15/20 07:04 Pulse 91 01/15/20 07:04 Resp 18 01/15/20 07:04 BP 117/70 01/15/20 05:27 Pulse Ox 97 01/15/20 07:04 - Abnormal Lab Findings Abnormal Lab Findings: Abnormal Lab Results 01/15/20 01/15/20 Range/Units 08:15 08:45 RBC 3.09 L (4.2-5.4) M/mm3 Hgb 9.6 L (12.5-16.0) gm/dL Hct 28.4 L (37.0-47.0) % MCH 31.1 H (27-31) pg Immature Gran % (Auto) 1.30 H (0.001-0.429) % Immature Gran # (Auto) 0.11 H (0.000-0.0310) K/mm3 Neutrophils % 75.6 H (42-75.0) % Lymphocytes % 13.7 L (20-51) % Neutrophils # 6.3 H (1.3-6.0) K/mm3 Lymphocytes # 1.14 L (1.5-3.5) k/mm3 Potassium 2.8 L (3.4-4.6) mmol/L BUN/Creatinine Ratio 6.0 L (9.0-21.6) Random Glucose 133 H D (70-110) mg/dL Alkaline Phosphatase 201 H (50-170) U/L Total Protein 5.9 L (6.2-8.2) gm/dL Albumin 1.6 L (3.4-5.0) gm/dl - Exam Constitutional: Present: Alert, Oriented x3, Cooperative, Well developed, Well nourished, No distress ENT Exam: Present: normal ENT inspection, hearing grossly normal, pharynx normal, TMs normal Neck: Present: non-tender, full range of motion, supple, normal inspection, trachea midline Breasts: Present: Exam deferred Respiratory: Present: chest non-tender, no respiratory distress, no accessory muscle use, crackles - Fine crackles on left lung base Cardiovascular/Chest: Present: normal peripheral pulses, regular rate, rhythm, no chest tenderness, no edema, no gallop, no JVD, no murmur, no rub Abdomen: Present: Normal bowel sounds, soft, nontender, nondistended, no rebound tenderness, no hepatospenomegaly, no masses /Rectal: Present: Exam deferred Extremity: Present: normal range of motion, non-tender, normal inspection, no pedal edema, no calf tenderness, normal capillary refill, pelvis stable Skin Exam: Present: normal color, warm/dry, no cyanosis Lymphatic: Present: no adenopathy Neurologic: Present: stitchdown thread laster II-XII nml as tested Appearance: Present: appropriate appearance, appropriate insight, neat, no memory impairment Eye contact: Present: cooperative, good eye contact, normal speech Thoughts: Present: normal thought pattern, no apparent hallucination Assessment/Plan Plan Narrative: Ambulatory orders were placed this morning and it was explained to patient that it is important that she remains active and not laying in bed all day in order to avoid blood clots. Since then she has been ambulating back and forth to the bathroom and around the room without any issues. The patient appears to be turning the corner and I believe if hypokalemia is corrected on tomorrow morning's labs and patient remains afebrile for the rest of the day she can be discharged home tomorrow with the remainder of her azithromycin course and instructions to take acetaminophen in case of recurrence of fever. If she is discharged, it should be explained to patient that she must remain in quarantine in her home for the remainder of the 14 days since being diagnosed. This is to avoid spreading the virus to her relatives and to the community. Also, Kym from the infectious disease committee should be notified if the patient is discharged during the weekend so that she can alert public health that the patient is returning to the community. - Problems/Diagnosis (1) Multifocal pneumonia Problem: Acute (2) Suspected COVID-19 virus infection Problem: Acute (3) Sepsis Problem: Resolved (4) Nicotine dependence Problem: Chronic Qualifiers: Nicotine product type: cigarettes (5) Amphetamine addiction Problem: Chronic (6) Dehydration Problem: Resolved (7) COVID-19 virus infection Problem: Acute (8) Pneumonia due to COVID-19 virus Problem: Acute (9) Hypokalemia Problem: Acute
[2020-01-15] MEDS: ENOXAPARIN SODIUM 40 MG/0.4 ML SYRG SC SCH (20:32)
[2020-01-15] MEDS: AZITHROMYCIN 250 MG TABLET PO SCH (20:33)
[2020-01-15] MEDS: NICOTINE 14 MG PATC TD SCH (20:33)
[2020-01-16] MEDS: POTASSIUM CHLORIDE 20 MEQ TABLET.SA PO SCH (00:24)
[2020-01-16] MEDS: PIPERACILLIN SODIUM/TAZOBACTAM 3.375 GM in DEXTROSE 5 % IN WATER 100 ML IV SCH ×4 (00:24→09:13)
[2020-01-16] MEDS: ACETAMINOPHEN 325 MG TABLET PO PRN ×2 (04:45→09:13)
[2020-01-16] MEDS: PANTOPRAZOLE SODIUM 40 MG TABLET.EC PO SCH (07:05)
[2020-01-16 07:41] LABS: Albumin * 1.7 gm/dl (3.4-5.0); Anion Gap 12.8 mmol/L (6.8-13.8); BUN/Creatinine Ratio 6.3 (9.0-21.6); Bilirubin, Total 0.3 mg/dL (0.0-1.1); Ca. Corrected For Albumin 9.5 mg/dL (8.4-10.2); Carbon Dioxide 25.9 mmol/L (24-32.6); Potassium 3.7 mmol/L (3.4-4.6); Total Protein 5.4 gm/dL (6.2-8.2)
[2020-01-16] MEDS: SACCHAROMYCES BOULARDII 250 MG CAPSULE PO SCH (09:13)
--- NOTE | 2020-01-16 09:25 | PN ---
Subjective - Date and Time Seen Date: 01/16/20 Time: 09:25 Subjective Narrative: Have fevers overnight. She also developed some body aches last night. She denies difficulty breathing, and reports he is eating okay. She is still ambulating around the room. Per her nurse, she seemed better yesterday than she does today. Objective - Review of Systems Generalized/Overall Review: Reports: Fever Respiratory: Denies: Cough, Shortness of Breath Cardiac: Denies: Chest Pain, Edema Abdominal: Denies: Vomiting Genitourinary Symptoms: Reports: No Symptoms Reported - Vitals Vitals: Last Vital Signs Temp 37.4 C 01/16/20 07:05 Pulse 97 01/16/20 07:05 Resp 20 01/16/20 07:05 BP 119/74 01/16/20 07:05 Pulse Ox 95 01/16/20 07:05 - Abnormal Lab Findings Abnormal Lab Findings: Abnormal Lab Results 01/16/20 Range/Units 07:13 BUN/Creatinine Ratio 6.3 L (9.0-21.6) Alkaline Phosphatase 254 H (50-170) U/L Total Protein 5.4 L (6.2-8.2) gm/dL Albumin 1.7 L (3.4-5.0) gm/dl - Exam Constitutional: Present: No distress, [place] Respiratory: Present: lungs clear, normal breath sounds Cardiovascular/Chest: Present: tachycardia Abdomen: Present: Normal bowel sounds, soft Extremity: Absent: lower extremity edema Eye contact: Present: avoids eye contact Assessment/Plan - Problems/Diagnosis (1) Pneumonia due to COVID-19 virus Problem: Acute Narrative: Today is day 6 of hospitalization. WBC normalized on 01/13, however she continues to spike fevers. We will stop Zosyn, as it can cause fevers. If her pneumonia is only due to COVID, the Zosyn may be of limited benefit. Continue azithromycin and prn tylenol. She is oxygenating on room air and denies shortness of breath. Not ready for discharge since she is still feeling poorly and spiking fevers. (2) Elevated alkaline phosphatase level Problem: Acute Narrative: Alk phos has been increasing, and is up to 254 today. GGT level pending for tomorrow. She denies abdominal pain. If she continues to have no abdominal pain, but alk phos is elevated, recommend liver US after DC when she is no longer potentially COVID contagious. (3) Hypokalemia Problem: Acute Narrative: Today's potassium is 3.7, improved from 2.8 yesterday. She was given 40 mEq Kdur daily, and will continue. (4) Hypoalbuminemia Problem: Acute Narrative: Albumin is only at 1.7, and has been close to this level for several days. Was 2.6 on admission, which is still low. Will add ensure in an attempt to increase her protein intake.
[2020-01-16 13:34] VITALS: BP 127/78
--- NOTE | 2020-01-16 17:08 | DS ---
(1) Pneumonia due to COVID-19 virus Problem: Acute (2) Elevated alkaline phosphatase level Problem: Acute (3) Hypokalemia Problem: Acute (4) Hypoalbuminemia Problem: Acute Hospital Course: Patient admitted for dyspnea. Her was positive for COVID-19, and she also was positive. She was treated with azithromycin and zosyn. She spiked fevers throughout her stay. On day 6 of hospitalization, she left AMA. WBC had normalized on 01/13. On the day she left, she was oxygenating on room air and denied shortness of breath, but she had developed body aches. Alk phos increased for the last 3 days of hospitalization, and was 254 on 01/15. GGT level was ordered for the following morning, but she left prior to it being drawn. She denied abdominal pain. She had some hypokalemia, which improved with 40 mEq daily KDur. Recommend rechecking. She also had hypoalbuminemia. On 01/15, albumin was only at 1.7, and had been at that level for several days. Was 2.6 on admission. Endure was added the morning of 01/15. Unsure why she left AMA, as she did not mention this during my assessment during rounding. Procedures Performed: none Results and Findings: Pending Mircobiology Results 01/11/20 18:30 Blood Blood Culture - Preliminary NO GROWTH AFTER 48 HOURS Lab Pending Results 01/11/20 16:01: Procalcitonin 42.96 H 01/11/20 16:01: WBC 16.2 H, RBC 4.05 L, Hgb 12.7, Hct 37.4, MCV 92.3, MCH 31.4 H, MCHC 34.0, RDW 12.8, Plt Count 177, MPV 11.9, Neutrophils % (Manual) 70, Band Neuts % (Manual) 21 H, Lymphocytes % (Manual) 6 L, Monocytes % (Manual) 3, Neutrophils # (Manual) 11.3 H, Lymphocytes # (Manual) 1.0 L, Monocytes # (Manual) 0.5, Platelet Estimate Normal, Anisocytosis Trace 01/11/20 16:01: Sodium 132, Plasma Sodium 132, Potassium 3.4, Chloride 95 L, Carbon Dioxide 27.1, Anion Gap 13.3, BUN 5, Creatinine 1.02, Est GFR (Non-Af Amer) 63, BUN/Creatinine Ratio 4.9 L, Random Glucose 103, Calcium 8.7, Calcium Adj for Albumin 9.5, Total Bilirubin 0.6, AST 14, ALT 12 L, Alkaline Phosphatase 122, Troponin I Less than 0.017, Total Protein 7.2, Albumin 2.6 L 01/11/20 16:01: Lactic Acid, Venous 2.6 H* 01/11/20 16:29: SARS-CoV-2 (PCR) Detected 01/11/20 17:33: Urine Opiates Screen Negative, Barbiturate Screen Negative, Ur Phencyclidine Scrn Negative, Urine Amphetamine Positive H, U Benzodiazepines Scrn Negative, Urine Cocaine Screen Negative, Urine Marijuana (THC) Negative 01/11/20 18:25: Urine Color Yellow, Urine Appearance Cloudy, Urine pH 6.5, Ur Specific [place] 1.010, Urine Protein Negative, Urine Glucose (UA) Negative, Urine Ketones Negative, Urine Blood Negative, Urine Nitrate Negative, Urine Bilirubin Negative, Urine Urobilinogen Normal, Ur Leukocyte Esterase Negative, Urine RBC Trace, Urine WBC Trace H, Ur Epithelial Cells 0-5, Urine Bacteria Trace, Urine Culture Comments No culture indicated 01/11/20 18:30: Lactic Acid, Venous 3.6 H* 01/11/20 18:30: D-Dimer 1.26 H 01/12/20 21:46: WBC 10.8 H D, RBC 2.96 L, Hgb 9.4 L, Hct 27.5 L, MCV 92.9, MCH 31.8 H, MCHC 34.2, RDW 13.2, Plt Count 146 L, MPV 11.7, Neutrophils % (Manual) 83 H, Lymphocytes % (Manual) 11 L, Monocytes % (Manual) 6, Neutrophils # (Manual) 9.0 H, Lymphocytes # (Manual) 1.2 L, Monocytes # (Manual) 0.6, Platelet Estimate Normal, RBC Morphology Normal 01/12/20 21:46: Sodium 136, Plasma Sodium 136, Potassium 2.5 L D, Chloride 104, Carbon Dioxide 21.8 L, Anion Gap 12.7, BUN 7, Creatinine 0.94, Est GFR (Non-Af Amer) 69, BUN/Creatinine Ratio 7.4 L, Random Glucose 123 H, Calcium 7.5 L, Calcium Adj for Albumin 9.0, Total Bilirubin 0.5, AST 12, ALT 12 L, Alkaline Phosphatase 113, Total Protein 5.6 L, Albumin 1.7 L 01/12/20 21:46: Lactic Acid, Venous 1.9 01/12/20 21:46: Procalcitonin 19.57 H 01/12/20 21:46: VBG pH 7.495 H 01/14/20 09:07: WBC 9.2, RBC 2.98 L, Hgb 9.3 L, Hct 27.5 L, MCV 92.3, MCH 31.2 H, MCHC 33.8, RDW 13.4, Plt Count 188, MPV 11.4, Immature Gran % (Auto) 1.70 H, Immature Gran # (Auto) 0.16 H, Neutrophils % 77.3 H, Lymphocytes % 11.6 L, Monocytes % 8.6, Eosinophils % 0.7, Basophils % 0.1, Nucleated RBC % 0.0, Neutrophils # 7.1 H, Lymphocytes # 1.07 L, Monocytes # 0.8, Eosinophils # 0.1, Absolute Basophils 0.0 01/14/20 09:07: Sodium 138, Plasma Sodium 138, Potassium 2.9 L, Chloride 106, Carbon Dioxide 22.2 L, Anion Gap 12.7, BUN 5, Creatinine 0.89, Est GFR (Non-Af Amer) 73, BUN/Creatinine Ratio 5.6 L, Random Glucose 95, Calcium 7.7 L, Calcium Adj for Albumin 9.3, Total Bilirubin 0.3, AST 30, ALT 24, Alkaline Phosphatase 175 H, Total Protein 5.8 L, Albumin 1.6 L, Vancomycin Trough 4.9 L 01/15/20 08:15: WBC 8.3, RBC 3.09 L, Hgb 9.6 L, Hct 28.4 L, MCV 91.9, MCH 31.1 H, MCHC 33.8, RDW 13.2, Plt Count 236, MPV 11.0, Immature Gran % (Auto) 1.30 H, Immature Gran # (Auto) 0.11 H, Neutrophils % 75.6 H, Lymphocytes % 13.7 L, Monocytes % 7.9, Eosinophils % 1.1, Basophils % 0.4, Nucleated RBC % 0.0, Neutrophils # 6.3 H, Lymphocytes # 1.14 L, Monocytes # 0.7, Eosinophils # 0.1, Absolute Basophils 0.0 01/15/20 08:45: Sodium 137, Plasma Sodium 138, Potassium 2.8 L, Chloride 103, Carbon Dioxide 24.7, Anion Gap 12.1, BUN 5, Creatinine 0.84, Est GFR (Non-Af Amer) 78, BUN/Creatinine Ratio 6.0 L, Random Glucose 133 H D, Calcium 8.2, Calcium Adj for Albumin 9.8, Total Bilirubin 0.3, AST 34, ALT 36, Alkaline P hosphatase 201 H, Total Protein 5.9 L, Albumin 1.6 L 01/16/20 07:13: Sodium 140, Plasma Sodium 140, Potassium 3.7 D, Chloride 105, Carbon Dioxide 25.9, Anion Gap 12.8, BUN 6, Creatinine 0.96, Est GFR (Non-Af Amer) 67, BUN/Creatinine Ratio 6.3 L, Random Glucose 105, Calcium 8.0, Calcium Adj for Albumin 9.5, Total Bilirubin 0.3, AST 43, ALT 56, Alkaline Phosphatase 254 H, Total Protein 5.4 L, Albumin 1.7 L Disposition: Against medical advice Condition: Fair Discharge Activity: Activity as tolerated Discharge Diet: General/regular food Complete Home Medications List: Complete Home Medication List: NK 01/11/20 Forms: Patient Portal Registration
[2020-01-17] MEDS ORDERED: POTASSIUM CHLORIDE 20 MEQ TABLET.SA PO SCH (09:00)
== END 2020-01-16 14:00 | disposition left against medical advice (07) | DRG 871 ==
LOC: ER 15:28 → MS 20:03
PROVIDERS: ADMIT Family Medicine; ATTEND Family Medicine
CPT/HCPCS: 36415; 71010; 71045; 71275; 80053; 80202; 80307; 81001; 82800; 83605; 84145; 84484; 85007; 85025; 85379; 87040; 93005; 96361; 96365; 96367; 99285; C9803; Q9967; U0001